=== PATIENT | female | born 1940 | race Hispanic/Latino ===

== ENCOUNTER → 2024-07-06 | Outpatient (CLI) | payer OTHER, MEDICARE ==
--- NOTE | 2024-07-06 15:28 | HMCIMG ---
DEXA BONE DENSITY SURVEY HISTORY: Menopause COMPARISON: None FINDINGS: Bone densitometry study was performed. Bone mineral density of the lumbar spine is 0.806 gram per centimeter square which corresponds to a T score of -2.2 and a Z score of 0.7. Bone mineral density of the right hip is 0.646 grams per centimeter square which corresponds to a T score of -2.4 and a Z score of -0 point. IMPRESSION: 1. Osteopenia of the lumbar spine and right hip.
== END | disposition home or self-care (01) ==
LOC: RAH 09:13
PROVIDERS: ATTEND Internal Medicine
DX: S42.292D Other displaced fracture of upper end of left humerus, subsequent encounter for fracture with routine healing (principal); M85.89 Other specified disorders of bone density and structure, multiple sites; Z78.0 Asymptomatic menopausal state; X58.XXXD Exposure to other specified factors, subsequent encounter
CPT/HCPCS: 77080